=== PATIENT | male | born 1940 | race Caucasian/White ===

== ENCOUNTER 2020-02-19 02:13 | Outpatient (CLI) | payer MEDICARE, SELFPAY ==
[2020-02-19 18:23] LABS: SARS-CoV-2 RNA PCR Negative
--- NOTE | 2020-02-20 17:48 | PM.IMHP ---
H&P: HPI History of Present Illness Date/Time: 02/20/20 17:48 Chief complaint: Preop/Covid Narrative: Rodger Mckeon is a 79 year old male with a long history of skin cancer surgery. He is brought today for excision of cancer from his right nose with frozen section and possible full thickness skin graft or composite cartilage graft. He is aware of the many possible complications such as infection, dehiscence, deformity, need for revision surgery, hematoma and other not corie common complications. Review of Systems Review of Systems: All systems reviewed & are unremarkable except as noted in HPI and below Constitutional: Constitutional: Reports no additional constitutional complaints Eyes: Eyes: Reports no additional eye complaints ENT: Comments: Hard of hearing. Respiratory: Respiratory: Reports no additional respiratory complaints Gastrointestinal: Gastrointestinal: Reports no additional gastrointestinal complaints Musculoskeletal: Musculoskeletal: Reports no additional musculoskeletal complaints Neurologic: Reports system reviewed and no additional complaints, except as documented [facility] Social History Social History Smoking status: Former smoker Additional smoking assessment comments: STATES QUITING AGE 50 Alcohol intake: former Substance use: never Spiritual care concerns: No Meds Home Medications and Allergies Home Medications Medication Instructions Recorded Confirmed Type cholecalciferol (vitamin D3) 50 mcg PO DAILY 02/12/20 02/12/20 History finasteride [Proscar] 5 mg DAILY 02/12/20 02/12/20 History lisinopril-hydrochlorothiazide 1 tablet PO DAILY 02/12/20 02/12/20 History lovastatin 40 mg PO HS 02/12/20 02/12/20 History miucekvb-kfo-QY-lycopen-lutein 1 tablet PO DAILY 02/12/20 02/12/20 History [Complete 50 Plus] niacinamide 500 mg PO BID 02/12/20 02/12/20 History Allergies Allergy/AdvReac Type Severity Reaction Status Date / Time No Known Allergies Allergy Unverified 02/12/20 08:34 Exam Narrative: Exam Narrative: Skin cancer on left ala. Either ear is satisfactory for donor graft. Const: General: no acute distress Eyes: General: appearance normal, both eyes and all related structures Neck: Neck: supple Resp: Auscultation: clear to auscultation bilaterally Cardio: Rate: regular rate Rhythm: regular rhythm Skin: General skin exam: normal color Neuro: General: gait normal Speech: normal speech Extrem: General: normal to inspection Assessment and Plan Assessment and plan (1) SCC (squamous cell carcinoma), face: Code(s): C44.320 - Squamous cell carcinoma of skin of unspecified parts of face Status: Acute Additional Plan Excision with FS and skin or cartilage graft as indicated.
== END 2020-02-19 02:14 | disposition home or self-care (01) ==
LOC: ANHCOVIDDT 02:13
PROVIDERS: PCP Internal Medicine; Visit Provider Plastic Surgery
DX: Z01.812 Encounter for preprocedural laboratory examination (principal); Z20.828 Contact with and (suspected) exposure to other viral communicable diseases; C44.320 Squamous cell carcinoma of skin of unspecified parts of face
CPT/HCPCS: 87635; C9803; U0003

== ENCOUNTER 2020-02-19 08:45 | Outpatient (CLI) | payer MEDICARE, SELFPAY ==
--- NOTE | 2020-02-19 08:51 | ECG_ITS ---
Measurements Intervals [place] Rate: 58 P: [place]: 0 QRS: -42 QRSD: 158 T: 46 QT: 489 QTc: 481 Interpretive Statements SINUS OR ECTOPIC ATRIAL BRADYCARDIA WITH MARKED FIRST DEGREE AV BLOCK LEFT AXIS DEVIATION RIGHT BUNDLE BRANCH BLOCK BASELINE ARTIFACT- II, III, AVF, V4-V5 ABNORMAL ECG Electronically Signed On 02-19-2020 13:26:52 CDT by Derek Carroll D.O.
[2020-02-19 09:10] LABS: Hematocrit 41.8 % (42.0-52.0); Hemoglobin 14.1 g/dL (14.0-18.0)
[2020-02-19 09:18] LABS: INR 1.1; Prothrombin Time 13.4 Seconds (11.1-14.7)
[2020-02-19 09:19] LABS: Anion Gap 8 mmol/L (8-16); Blood Urea Nitrogen 19 mg/dL (9-20); Calcium 9.5 mg/dL (8.4-10.2); Carbon Dioxide 25 mmol/L (22-30); Chloride 106 mmol/L (98-107); Estimated Glomerular Filt Rate 53; Glucose 99 mg/dL (75-110); Partial Thromboplastin Time 28.6 SECONDS (22.3-36.8); Sodium 139 mmol/L (137-145)
== END 2020-02-19 08:46 | disposition home or self-care (01) ==
LOC: ANHSURGERY 08:51
PROVIDERS: Anesthesiology; PCP Internal Medicine; Visit Provider Plastic Surgery
DX: Z01.818 Encounter for other preprocedural examination (principal); I10 Essential (primary) hypertension; Z79.899 Other long term (current) drug therapy; D64.9 Anemia, unspecified; D69.9 Hemorrhagic condition, unspecified; R94.31 Abnormal electrocardiogram [ECG] [EKG]
CPT/HCPCS: 36415; 80048; 85014; 85018; 85610; 85730; 87635; 93005; C9803; U0003

== ENCOUNTER 2020-02-21 00:49 | Day surgery (SDC) | payer MEDICARE, SELFPAY ==
[2020-02-12 09:13] VITALS: BMI 29.9
[2020-02-21] VITALS (8 sets, daily range): BP systolic 128–159; BP diastolic 72–82; PULSE 53–70; RESP 13–20; TEMP 35.7–36.3; O2SAT 93–98
--- NOTE | 2020-02-21 07:11 | WPDHPUPDATE1 ---
History and Physical Update Update Date/Time: 02/21/20 07:11 History and Physical has been reviewed, including an updated exam of the patient. There are NO changes in the patient's condition. Risks, benefits, and alternatives have been discussed and questions answered. Patient agrees to proceed with procedure.
[2020-02-21] MEDS: LACTATED RINGERS 1,000 ML 30 ML IV CONT ×2 (08:05→12:12)
--- NOTE | 2020-02-21 08:37 | WPDANESEPPF ---
Anes - Initial Pre Proc Eval Procedure: Operation Date: 02/21/20 09:30 Proposed Procedures p Excision Squamous Cell Carcinoma Left Nasal Ala With Frozen Section, WIth Full Thickness Skin Graft Or Composite Cartilage Graft - Todd Aden MD Date/Time: 02/21/20 08:37 Surgeon: Todd Aden MD Pre Op Diagnosis: SSC Left Nasal Ala Patient Data Age: 79 Gender: M Height: 6 ft Weight: 99.9 kg Last Vital Signs Temp 36.3 C L 02/21/20 07:35 Pulse 53 L 02/21/20 07:35 Resp 20 02/21/20 07:35 BP 159/80 H 02/21/20 07:35 Pulse Ox 98 02/21/20 07:35 Allergies Allergy/AdvReac Type Severity Reaction Status Date / Time No Known Allergies Allergy Unverified 02/21/20 08:11 Home Medications Medication Instructions Recorded Confirmed Type cholecalciferol (vitamin D3) 50 mcg PO DAILY 02/12/20 02/21/20 History finasteride [Proscar] 5 mg DAILY 02/12/20 02/21/20 History lisinopril-hydrochlorothiazide 1 tablet PO DAILY 02/12/20 02/21/20 History lovastatin 40 mg PO HS 02/12/20 02/21/20 History pipeqkkl-cfo-CR-lycopen-lutein 1 tablet PO DAILY 02/12/20 02/21/20 History [Complete 50 Plus] niacinamide 500 mg PO BID 02/12/20 02/21/20 History Patient hx anesthesia problems: none Family hx anesthesia problems: none PMFSH Past Medical History Medical History Hyperlipidemia Hypertension Leukemia Social History Social History Smoking status: Former smoker Additional smoking assessment comments: STATES QUITING AGE 50 Alcohol intake: former Alcohol use details: STATES STOPPED DRINKING 2009 Substance use: never Living arrangements: alone Spiritual care concerns: No Anes - Eval Final PreProcedure Day of Procedure 02/21/20 08:37 Patient weight: overweight Heart: regular rate and rhythm Lungs: clear to auscultation Airway: Mallampati scale class II Neurological: other (alert) Last oral intake: 2 hours ASA classification: III Emergent: no Anesthetic plan: proceed Anesthesia type and monitoring: general LMA and standard monitoring Informed Consent: The patient's anesthetic plan and its attendant risks and benefits were discussed with the patient/family/POA. Questions were solicited and answers provided to the satisfaction of the patient/family/POA.
--- NOTE | 2020-02-21 09:57 | WPDHPUPDATE1 ---
History and Physical Update Update Date/Time: 02/21/20 09:57 History and Physical has been reviewed, including an updated exam of the patient. There are NO changes in the patient's condition. Risks, benefits, and alternatives have been discussed and questions answered. Patient agrees to proceed with procedure. The side of the nose being address is the LEFT.
[2020-02-21] MEDS: LIDO 1%/EPINEPHRINE 1:100,000 20 ML VIAL 8 ML INFILTRATE (10:10)
--- NOTE | 2020-02-21 12:17 | PM.OP ---
Procedure Note - Brief Procedure Note - Brief Date of procedure: 02/21/20 Pre-op diagnosis: SSC Left Nasal Ala Post-op diagnosis: same Procedure performed: 1.5 cm excision of SCC left ala with FTSG 1.5 sq cm. Anesthesia: GLMA and GETA Surgeon: Todd Aden MD [employer] Coordinator: Petty Estimated blood loss (mL): 4 Drains: No Packing: No Pathology: yes Complications: No immediate complications Condition: stable Disposition: same day
--- NOTE | 2020-02-21 12:27 | PM.PROC ---
Procedure Note - Detailed Date of procedure: 02/21/20 Pre-op diagnosis: SSC Left Nasal Ala Post-op diagnosis: same Procedure performed: 1.5 cm excision of squamous cell carcinoma of the left nasal ala with frozen section x2 and full-thickness skin graft 1.5 sq cm Description of procedure: The nose and right Face were marked on the patient in the holding area. He was taken to the operating room was placed supine on the operating table. The Face was prepped and draped in usual fashion a time-out was held and confirmed. These eventually given LMA intubation. The site on the left nose was carefully marked and locally anesthetized with 1% lidocaine with epinephrine. A shallow full-thickness skin graft was taken off the dome of the left ala. This was marked at the superior aspect with a suture for 12:00 p.m.. The specimen sent for frozen section the pathologist revealed that the 6-9 o'clock margin was positive. A 2nd full-thickness graft was sent from that region it was marked at its new 10 o'clock position. The pathologist reports that the margins are free. Graft was harvested from the right postauricular sulcus. The wound was undermined and closed with intradermal 4-0 Vicryl and glue. The graft was carefully defatted and inset and tailored. He was discharged following extubation. He has instructions in wound care and follow-up. He was given a prescription for Keflex 500 mg 15. Surgeon: Todd Aden MD
== END 2020-02-21 13:53 | disposition home or self-care (01) ==
PROVIDERS: PCP Internal Medicine; Visit Provider Plastic Surgery
PROC: (CPT 11642; principal; 2020-02-21 09:30)
DX: C44.321 Squamous cell carcinoma of skin of nose (principal)
CPT/HCPCS: 11642; 15260; 88305; 88331; A9270; J1100; J2405; J2704; J3010; J7120

== ENCOUNTER 2021-06-11 13:00 | Outpatient (CLI) | payer MEDICARE, SELFPAY ==
[2021-06-11 13:28] LABS: Hematocrit 40.4 % (42.0-52.0); Hemoglobin 13.8 g/dL (14.0-18.0)
[2021-06-11 13:40] LABS: Anion Gap 4 mmol/L (8-16); Blood Urea Nitrogen 22 mg/dL (9-20); Carbon Dioxide 29 mmol/L (22-30); Chloride 105 mmol/L (98-107); Estimated Glomerular Filt Rate > 60; Glucose 102 mg/dL (65-110); Sodium 138 mmol/L (137-145)
== END 2021-06-11 13:01 | disposition home or self-care (01) ==
LOC: ANHSURGERY 13:08
PROVIDERS: Anesthesiology; PCP Internal Medicine; Visit Provider Plastic Surgery
DX: Z01.818 Encounter for other preprocedural examination (principal); Z79.899 Other long term (current) drug therapy; C95.90 Leukemia, unspecified not having achieved remission
CPT/HCPCS: 36415; 80048; 85014; 85018

== ENCOUNTER 2021-06-18 01:22 | Day surgery (SDC) | payer MEDICARE, SELFPAY ==
[2021-06-11 09:17] VITALS: BMI 30.5
--- NOTE | 2021-06-11 09:21 | PC.NURSE ---
Report to the Outpatient Waiting Room, entrance under the green pavilion located off [facility], at time _0730__ on date _06/18/21_. OR Time: _0930 AM__. - You and your visitor will be asked a series of questions to screen for COVID 19 for your protection. - A mask is required within the hospital. - Only one visitor is allowed at this time. Patient visitors will be guided where to wait when not with patient. Preoperative COVID Testing Requirements: No COVID Test needed if: (proof is required; if not received patient will have Rapid Test prior to entry) - Patient has received COVID Vaccine at least 14 days prior to procedure date or - Patient has positive COVID test result within last 90 days of surgery date. COVID Test needed if above criteria is not met If not COVID vaccinated a COVID test must be conducted within 72 hours of surgery and patient is asked to isolate self from time of testing until procedure. You will go to the [facility] for your COVID testing. The [facility] site is located at the corner of [address] [facility]. You will only be called if COVID results are positive and your surgeon may reschedule your elective surgery date. Patients may have clear liquids (water, carbonated beverages, clear teas, apple juice) until 3 hours prior to surgery (0630 AM) with a maximum of 20 ounces. - No food from midnight until time of surgery - Infants may have breast milk until 4 hours before surgery, formula 6 hours prior to surgery. - Children will be allowed to drink immediately following surgery. If applicable, please bring a bottle or sippy cup to assist with drinking. Juice, water, soda, and popsicles are readily available. For infants on formula, please bring formula the day of surgery. Pacifiers are allowed. Take the following medications with a SIP of water the morning of surgery: NONE Medications to discontinue per physician _VITAMIN D3, FISH OIL, MULTIVITAMIN, NIACINAMIDE Date to take last dose__06/14/21 Please no make-up, nail korean, hairspray, perfume, deodorant, or body powder the day of surgery. No jewelry (including any body piercings) or valuables the day of surgery, leave them at home. Please take a shower or bath the night before, or the morning of, surgery with an antibacterial soap. Wear comfortable, loose fitting clothing. Children are encouraged to wear pajamas. - Jewelry must be removed prior to entering the operating room. Rings and piercings that are not removed may be cut off. - The hospital will not accept responsibility for valuables. - Please leave all valuables, including medications, at home the day of surgery. If you are going home after surgery, a licensed scoop driver must drive you home. - NO public transportation without another adult. - We recommend that an adult stay with you for 24 hours following discharge. - We also recommend that you do not drive, make important decision, drink alcoholic beverages, or take any drugs that were not prescribed by your health care provider for at least 24 hours after your discharge time. For Pediatric surgeries, we recommend two adults accompany the child home (only one inside the building at this time). Follow any additional instructions given to you from your surgeon. Telephone instructions given to __PT and asked if any additional questions and then verbalized understanding. Patient advised to call surgeon office or pre surgery nurse liaison [phone] if any additional questions.
--- NOTE | 2021-06-17 15:19 | WPDANESEPPF ---
Anes - Initial Pre Proc Eval Procedure: Operation Date: 06/18/21 09:00 Proposed Procedures p Excision Squamous Cell Carcinoma Insitu Left Side of Nose with Frozen Section and Full Thickness Skin Graft, Excision Squamous Cell Carcinoma Left Lobule with Frozen Section and Full Thickness Skin Graft - Todd Aden MD Date/Time: 06/17/21 15:19 Surgeon: Todd Aden MD Pre Op Diagnosis: sq cell CA insitu left side of nose, Patient Data Age: 80 Gender: M Height: 1.83 m Weight: 102.27 kg Allergies Allergy/AdvReac Type Severity Reaction Status Date / Time No Known Allergies Allergy Unverified 06/18/21 07:27 Home Medications Medication Instructions Recorded Confirmed Type Complete 50 Plus 1 tablet PO DAILY 02/12/20 06/18/21 History cholecalciferol (vitamin D3) 50 mcg PO DAILY 02/12/20 06/18/21 History finasteride [Proscar] 5 mg DAILY 02/12/20 06/18/21 History lisinopril-hydrochlorothiazide 1 tablet PO DAILY 02/12/20 06/18/21 History lovastatin 40 mg PO HS 02/12/20 06/18/21 History niacinamide [Niacin (niacinamide)] 500 mg PO BID 02/12/20 06/18/21 History omega-3 fatty acids [Fish Oil] 500 mg PO EVERY OTHER DAY 06/11/21 06/18/21 History Patient hx anesthesia problems: none Family hx anesthesia problems: none Results Review: All pre-operative results and documents have been reviewed as part of the pre-operative evaluation. [facility] Past Medical History Medical History (Updated 06/17/21 @ 15:20 by August Olguin MD) Hyperlipidemia Hypertension Leukemia Obesity Social History Social History Smoking status: Former smoker Tobacco type: cigarettes Second hand tobacco smoke exposure: No Additional smoking assessment comments: STATES QUIT AGE 50 Alcohol intake: former Alcohol use details: STATES STOPPED DRINKING 2009 Substance use: never Substance use type: does not use Living arrangements: alone Spiritual care concerns: No Anes - Eval Final PreProcedure Day of Procedure 06/17/21 15:19 Patient weight: obese Heart: regular rate and rhythm Lungs: clear to auscultation and normal air movement Airway: Mallampati scale class II Neurological: alert and oriented Last oral intake: >/= 8 hours ASA classification: III Emergent: no Anesthetic plan: proceed Anesthesia type and monitoring: general GIVS and LMA Results Review: All pre-operative results and documents have been reviewed as part of the pre-operative evaluation. Informed Consent: The patient's anesthetic plan and its attendant risks and benefits were discussed with the patient/family/POA. Questions were solicited and answers provided to the satisfaction of the patient/family/POA.
--- NOTE | 2021-06-18 07:10 | WPDHPUPDATE1 ---
History and Physical Update Update Date/Time: 06/18/21 07:10 History and Physical has been reviewed, including an updated exam of the patient. There are NO changes in the patient's condition. Risks, benefits, and alternatives have been discussed and questions answered. Patient agrees to proceed with procedure.
[2021-06-18 07:14] VITALS: BP 162/83; PULSE 56; RESP 16; TEMP 36.3; O2SAT 99
[2021-06-18] MEDS: LACTATED RINGERS 1,000 ML 30 ML IV CONT (07:44)
[2021-06-18] MEDS: LIDO 1%/EPINEPHRINE 1:100,000 50 ML VIAL 20 ML INFILTRATE (08:43)
[2021-06-18] MEDS: BACITRACIN OINTMENT 15 GM TUBE 1 APPLIC TOPICAL (08:43)
[2021-06-18] MEDS: ceFAZolin 2 GM/D5W 50 ML 2 GM/50 ML BAG IVPB (08:43)
--- NOTE | 2021-06-18 09:47 | SUR.OPER ---
speciman given to kirt at [id number]
[2021-06-18 11:40] VITALS: BP 98/55; PULSE 69; RESP 18; O2SAT 95
--- NOTE | 2021-06-18 11:55 | W.PM.PROC2 ---
Procedure Note - Detailed Date of Procedure 06/18/21 Pre-op Diagnosis sq cell CA insitu left side of nose, Post-op Diagnosis other (Squamous cell carcinoma of the left side of nose and lobule taken as a single specimen) Procedure Performed 3 cm x 4 cm excision of squamous cell carcinoma of the left side of the nose and lobule with frozen section x3 and full-thickness skin graft 10 sq cm Surgeon Todd Aden MD [employer] [place] [employer] MAC Indications Previous external biopsy of squamous cell carcinoma insitu and squamous cell carcinoma from adjacent areas on the left nasal lobule and left side of the nose Findings Invasive squamous cell carcinoma of the left side of the nose and lobule Description of Procedure The patient's nose was marked as he waited in the holding area. The area is clearly involved with actinic changes with fairly severe nature. The 2 biopsies are nearly adjacent to each other and there is additional involved tissue in the same region. This tissue was taken today as a single specimen. The appropriate site was marked and patient was taken to the operating where he was placed supine on the operating table. A time-out was held and confirmed. He was given general IV sedation with in and. The entire face neck and upper chest areas were prepped and draped in usual fashion. The nose was very carefully examined after wiping Betadine off it. We tried to outline an area with a marking pen which encompassed the 2 biopsy sites plus other skin severely damaged by solar radiation. This area was widely infiltrated with 1% lidocaine with epinephrine the skin excision was carried out at the level of the dermal junction. This was extended somewhat deeper in the area just cephalad to the end of the lower ala cartilage which showed granular firm mass consistent with deep tumor. The superior and inferior margins of the specimen were marked as well as the area just mention which appeared to be involved with tumor on the deep margin. The specimen was sent to pathology. The pathologist reported several margins positive for tumor including the deep margin just mentioned and the 7-12 o'clock margin roughly. Additional wide margin from the 7 to 12 rim was sent. An additional specimen from the deep margin on the upper half of the original specimen site was also sent. The pathologist revealed that the margins were then free. Skin graft was harvested from the left clavicular area choosing an area did not significantly involved with other actinic lesions. This was defatted and inset with 5 0 nylon utilizing some quilting stitches. The donor area was closed with intradermal 3-0 Vicryl and a running intradermal 3-0 Vicryl and glue. Patient tolerated this procedure well He had received 2 g Ancef preop. He is discharged home with a prescription for cephalexin 500 mg t.i.d. 15. Assessment tramadol 50 mg 8. Estimated Blood Loss 20 Drains No Packing No Pathology yes Complications No immediate complications Condition stable Disposition same day
[2021-06-18 12:10] VITALS: BP 116/63; PULSE 67; RESP 16
[2021-06-18 12:40] VITALS: BP 135/98; PULSE 56; RESP 16
[2021-06-18] MEDS: oxyCODONE HCL (*CRX) 5 MG TAB IR PO (12:59)
== END 2021-06-18 13:00 | disposition home or self-care (01) ==
PROVIDERS: PCP Internal Medicine; Visit Provider Plastic Surgery
PROC: (CPT 11646; principal; 2021-06-18 09:00)
DX: C44.321 Squamous cell carcinoma of skin of nose (principal); L57.0 Actinic keratosis; I10 Essential (primary) hypertension; E78.5 Hyperlipidemia, unspecified; C95.90 Leukemia, unspecified not having achieved remission; E66.9 Obesity, unspecified; Z68.30 Body mass index [BMI] 30.0-30.9, adult
CPT/HCPCS: 11646; 15260; 88305; 88331; 88332; A9270; J0690; J2704; J3010; J7120